=== PATIENT | male | born 1985 | race Caucasian/White ===

== ENCOUNTER 2018-07-20 06:13 | Emergency (ER) | payer SELFPAY ==
[~2018-07-20] VITALS: Ht 172.7 cm; Wt 100.0 kg
[2018-07-20] MEDS ORDERED: ONDANSETRON 4MG ODT PO ONE (07:15)
[2018-07-20] MEDS ORDERED: HYDROCODONE/ACETAMINOPHEN 5/325MG TABLET PO ONE ×2 (07:15→09:45)
[2018-07-20] MEDS ORDERED: LIDOCAINE HCL/PF 1% 10 MG/ML 5ML VIAL IJ ONE (07:15)
[2018-07-20] MEDS ORDERED: BACITRACIN ZINC OINT UDPKT TOP ONE (07:15)
[2018-07-20 10:50] VITALS: BP 127/74
== END 2018-07-20 10:52 | disposition home or self-care (01) ==
LOC: ER 06:13
DX: S01.01XA Laceration without foreign body of scalp, initial encounter (principal); Z88.6 Allergy status to analgesic agent; Y04.0XXA Assault by unarmed brawl or fight, initial encounter; Y93.89 Activity, other specified; Y92.89 Other specified places as the place of occurrence of the external cause; Y99.8 Other external cause status
CPT/HCPCS: 12016; 70450; 99284; A4217; J3490; Q0162; Z7610